=== PATIENT | male | born 1955 | race Caucasian/White ===

== ENCOUNTER 2023-10-28 07:45 | Observation (INO) | payer OTHER ==
[2023-10-28 09:39] LABS: Troponin I Less than 0.010 ng/mL (< 0.028)
[2023-10-28] MEDS ORDERED: Acetaminophen 325 MG TAB PO PRN (09:48)
[2023-10-28] MEDS ORDERED: Insulin Regular 300 UNITS/3 ML VIAL SC PRN (09:48)
[2023-10-28] MEDS ORDERED: Senokot S 8.6-50 MG TAB PO PRN (09:48)
[2023-10-28] MEDS ORDERED: Glucagon 1 MG/ML KIT IM PRN (09:48)
[2023-10-28] MEDS ORDERED: Dextrose 5% in Water 1,000 ML IV PRN (09:48)
[2023-10-28] MEDS ORDERED: Dextrose 50% Abboject 50 ML SYRINGE SLOW IVP PRN (09:48)
[2023-10-28 11:58] LABS: Magnesium 1.8 mg/dL (1.6-2.6)
[2023-10-28] MEDS ORDERED: Hydrocortisone Acetate 25 MG Suppository PR PRN (13:09)
[2023-10-28 13:39] LABS: Troponin I Less than 0.010 ng/mL (< 0.028)
[2023-10-28] MEDS ORDERED: Aspirin Chewable 81 MG TAB ONE (14:21)
[2023-10-28] MEDS ORDERED: Magnesium 2 GM/50 ML BAG (IN WATER) ONE (14:21)
[2023-10-28] MEDS: Magnesium 2 GM/50 ML(in water) 2 GM in Premix 1 BAG IVPB SCH (14:36)
[2023-10-28] MEDS: Aspirin Chewable 81 MG TAB PO SCH (14:37)
[2023-10-28] MEDS ORDERED: Witch Hazel-Glycerin 1 EACH JAR TOP PRN (15:16)
[2023-10-28 18:28] LABS: Troponin I Less than 0.010 ng/mL (< 0.028)
[2023-10-28 21:43] VITALS: BMI 25.1
[2023-10-29] MEDS: Famotidine 20 MG TAB PO SCH ×3 (01:03→08:26)
[2023-10-29] MEDS: Metoprolol Tartrate 25 MG TAB PO SCH ×3 (01:03→08:25)
[2023-10-29 03:44] LABS: Anion Gap 13 mmol/L (10-20); BUN (Urea Nitrogen) 11 mg/dL (8.4-25.7); Calc. Creatinine Clearance 108 mL/min (70-130); Calcium 8.6 mg/dL (7.8-10.44); Carbon Dioxide 22 mmol/L (23-31); Cardiac Risk 4.5 (Less than 4.5); Chloride 108 mmol/L (98-107); Cholesterol 98 mg/dl (< 200 Desired); Estimated GFR 97; Glucose 152 mg/dL (80-115); HDL Cholesterol 22 mg/dL (>60 Neg Risk); LDL Cholesterol, Calculated 46 mg/dL; Magnesium 1.9 mg/dL (1.6-2.6); Potassium 3.7 mmol/L (3.5-5.1); Sodium 139 mmol/L (136-145); Triglycerides 150 mg/dL (Less than 150)
[2023-10-29 04:26] LABS: #Basophils 0.1 10x3/uL (0.0-0.2); #Eosinphils 0.2 10x3/uL (0.0-0.5); #Monocytes 0.6 10x3/uL (0.0-1.1); #Neutrophils 4.6 10x3/uL (1.5-8.4); %Basophils 0.8 % (0.0-2.0); %Eosinophils 2.4 % (0.0-6.0); %Lymphocytes 22.7 % (18.0-47.0); %Monocytes 8.3 % (0.0-10.0); %Neutrophils 64.8 % (40.0-75.0); Hematocrit 38.3 % (38.8-50.0); Hemoglobin 13.4 g/dL (13.5-17.5); Mean Corpuscular Hemoglobin 32.3 pg (27.0-33.0); Mean Corpuscular Volume 92.3 fl (81.2-95.1); Mean Platelet Volume 9.9 fl (7.4-10.4); Platelet Count 230 10x3/uL (150-450); RBC Distribution Width 16.3 % (11.5-14.5); Red Blood Cell (RBC) Count 4.15 10x6/uL (4.32-5.72); White Blood Cell (WBC) Count 7.1 10x3/uL (3.5-10.5)
[2023-10-29] MEDS: Aspirin Chewable 81 MG TAB PO SCH (08:25)
[2023-10-29] MEDS: Ezetimibe 10 MG TAB PO SCH (08:26)
[2023-10-29] MEDS ORDERED: predniSONE 5 MG TAB PO SCH (09:00)
[2023-10-29] MEDS ORDERED: predniSONE 10 MG TAB PO SCH (09:00)
[2023-10-29] MEDS: Lisinopril 10 MG TAB PO SCH (10:08)
[2023-10-29] MEDS: Tamsulosin HCl 0.4 MG CAP PO SCH (10:09)
[2023-10-29] MEDS: Potassium Chloride 20 MEQ TAB PO SCH (10:46)
[2023-10-29] MEDS: Magnesium 2 GM/50 ML(in water) 2 GM in Premix 1 BAG IVPB SCH (10:47)
[2023-10-29 12:20] VITALS: BP 160/72; TEMP 98.8
[2023-10-29] MEDS ORDERED: Rosuvastatin 10 MG TAB PO SCH (21:00)
[2023-10-29] MEDS ORDERED: Nebivolol HCl 5 MG TAB PO SCH (21:00)
== END 2023-10-29 15:10 | disposition home or self-care (01) ==
LOC: CSHERS 07:45 → CSHERHOLD 09:36 → CSHTELE 18:20
PROVIDERS: ADMIT Internal Medicine; ATTEND Internal Medicine
DX: R06.02 Shortness of breath (principal); I25.118 Atherosclerotic heart disease of native coronary artery with other forms of angina pectoris; E11.9 Type 2 diabetes mellitus without complications; I10 Essential (primary) hypertension; E78.2 Mixed hyperlipidemia; E83.42 Hypomagnesemia; R07.9 Chest pain, unspecified; N40.0 Benign prostatic hyperplasia without lower urinary tract symptoms; K40.90 Unilateral inguinal hernia, without obstruction or gangrene, not specified as recurrent; K64.4 Residual hemorrhoidal skin tags; Z79.899 Other long term (current) drug therapy; Z79.82 Long term (current) use of aspirin; Z88.8 Allergy status to other drugs, medicaments and biological substances; Z79.84 Long term (current) use of oral hypoglycemic drugs; Z90.49 Acquired absence of other specified parts of digestive tract
CPT/HCPCS: 71045; 71275; 80048; 80053; 80061; 82962 ×2; 83690; 83735 ×2; 83880; 84484 ×2; 85025 ×2; 85610; 85730; 93005; 94760; 96365; 96375; 96376; 99285; G0378 ×3; 36415; 36416; J3475; Q9967